=== PATIENT | female | born 1925 | race Caucasian/White ===

== ENCOUNTER → 2016-03-21 | Outpatient (CLI) | payer OTHER, MEDICARE ==
[~2016-03-21] MED LIST: AMLODIPINE BESY10 MG PO; AREDS PO; ASPIRIN EC81 M1 PO; BENAZEPRIL HCL20 MG PO; CARVEDILOL12.5 MG PO; CARVEDILOL6.25 MG PO; CEPHALEXIN 500500 M1 PO; FLOMAX0.4 MG PO; FOSAMAX 70 MG T70 M1 PO; GLIPIZIDE ER5 MG PO; GLUCOPHAGE XR500 MG PO; HYDROCODON-ACE1 EAC7 PO; LEVOTHYROXIN0.112 M1 PO; LEVOXYL112 MCG PO; PRAVACHOL80 MG PO; VESICARE 5 MG TA5 MG PO; VITAMIN D31000 UNI2 PO
== END ==
LOC: RAD 09:45
DX: Z12.31 Encounter for screening mammogram for malignant neoplasm of breast (principal)

== ENCOUNTER → 2017-03-22 | Outpatient (CLI) | payer OTHER, MEDICARE | LOC: RAD 01:51 | DX: Z12.31 Encounter for screening mammogram for malignant neoplasm of breast (principal) ==